=== PATIENT | male | born 2005 | race Caucasian/White ===

== ENCOUNTER 2024-04-24 11:43 | Emergency (ER) | payer SELFPAY ==
[~2024-04-24] VITALS: Ht 167.6 cm; Wt 82.0 kg
[2024-04-24 12:16] VITALS: TEMP 98.2; O2SAT 99
[2024-04-24] MEDS ORDERED: IBUPROFEN 600MG TABLET PO ONE (12:30)
[2024-04-24] MEDS ORDERED: IBUP-2029 MT (14:32)
[2024-04-24 14:55] VITALS: BP 154/85; PULSE 85; RESP 15
[2024-04-24] MEDS: IBUPROFEN 600MG TABLET PO NR (14:55)
[2024-04-24] MEDS: BACITRACIN ZINC OINT UDPKT TOP ONE (14:55)
== END 2024-04-24 14:58 | disposition home or self-care (01) ==
LOC: ER 11:43
DX: S83.92XA Sprain of unspecified site of left knee, initial encounter (principal); S80.212A Abrasion, left knee, initial encounter; W18.39XA Other fall on same level, initial encounter; Y93.89 Activity, other specified; Y92.89 Other specified places as the place of occurrence of the external cause; Y99.8 Other external cause status
CPT/HCPCS: 73562; 99283